=== PATIENT | female | born 1955 | race Caucasian/White ===

== ENCOUNTER 2016-10-29 17:30 | Outpatient (CLI) | payer OTHER | END 2016-10-29 17:31 | disposition home or self-care (01) | LOC: NC 17:30 | PROVIDERS: ATTEND Family Medicine | DX: E11.9 Type 2 diabetes mellitus without complications (principal); Z71.3 Dietary counseling and surveillance; Z68.30 Body mass index [BMI] 30.0-30.9, adult; I10 Essential (primary) hypertension ==